=== PATIENT | male | born 1985 | race Caucasian/White ===

== ENCOUNTER 2018-07-12 14:31 | Emergency (ER) | payer BC ==
[~2018-07-12] VITALS: Ht 182.9 cm; Wt 177.3 kg
[2018-07-12 14:49] VITALS: TEMP 98.2
[2018-07-12] MEDS ORDERED: HCTZ 25MG TAB25 MG PO (15:47)
[2018-07-12] MEDS ORDERED: COZAAR 25MG25 MG/TAB PO (15:47)
[2018-07-12] MEDS ORDERED: NORCO 325 MG-51 TAB PO (15:58)
[2018-07-12 16:15] VITALS: BP 138/82; PULSE 81
== END 2018-07-12 16:17 | disposition home or self-care (01) ==
LOC: COL.ER 14:31
DX: S43.102A Unspecified dislocation of left acromioclavicular joint, initial encounter (principal); I10 Essential (primary) hypertension; W19.XXXA Unspecified fall, initial encounter; Y92.009 Unspecified place in unspecified non-institutional (private) residence as the place of occurrence of the external cause